=== PATIENT | female | born 1955 | race Caucasian/White ===

== ENCOUNTER → 2018-04-11 08:25 | Outpatient (CLI) | payer OTHER ==
[2018-04-11 09:00] LABS: ALBUMIN 3.3 g/dL (3.4-5.0); ANION GAP 11.7 mmol/L (8-16); BILIRUBIN - TOTAL 1.19 mg/dL (0.2-1.3); CALCIUM 9.2 mg/dL (8.5-10.1); CARBON DIOXIDE 31.2 mmol/L (21.0-32.0); POTASSIUM - SERUM 3.9 mmol/L (3.5-5.1); PROTEIN - SERUM 7.6 g/dL (6.4-8.2)
== END | disposition home or self-care (01) ==
LOC: D.LAB 04-10 09:00
PROVIDERS: Orthopaedic Surgery
DX: E87.6 Hypokalemia (principal)

== ENCOUNTER 2018-08-11 17:03 | Emergency (ER) | payer OTHER, MEDICARE ==
[~2018-08-11] VITALS: Ht 162.6 cm; Wt 50.0 kg
[2018-08-11 17:09] VITALS: Ht 162.6 cm; Wt 50.0 kg
[2018-08-11] MEDS ORDERED: VIBRAMYCIN 100100 MG PO (19:56)
[2018-08-11] MEDS ORDERED: VOLTAREN75 MG PO (19:56)
[2018-08-11 20:11] VITALS: BP 166/91
== END 2018-08-11 20:11 | disposition home or self-care (01) ==
LOC: D.ER 17:03
DX: S61.412A Laceration without foreign body of left hand, initial encounter (principal); W26.8XXA Contact with other sharp object(s), not elsewhere classified, initial encounter; Y93.89 Activity, other specified; Y92.019 Unspecified place in single-family (private) house as the place of occurrence of the external cause; S60.222A Contusion of left hand, initial encounter